=== PATIENT | female | born 2000 | race Caucasian/White ===

== ENCOUNTER 2019-12-01 21:29 | Inpatient (IN) | payer OTHER ==
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
[2019-12-02 02:01] LABS: Urine Appearance Clear; Urine Bilirubin Negative (Negative); Urine Blood Negative (Negative); Urine Color Straw; Urine Glucose Negative (Negative); Urine Ketones Negative (Negative); Urine Nitrite Negative (Negative); Urine Protein Negative (Negative); Urine Urobilinogen Negative (Negative)
[2019-12-02 02:17] LABS: Urine Benzodiazepine Screen None Detected (None Detect); Urine Opiates Screen None Detected (None Detect)
[2019-12-02] MEDS ORDERED: Al Hydrox/Mg Hydrox/Simet LIQ* 30 ML UDC PO PRN (06:24)
[2019-12-02] MEDS ORDERED: Nicotine* 2MG (FRUIT FLAVOR) GUM PO PRN (06:24)
[2019-12-02] MEDS ORDERED: Acetaminophen TAB* 325 MG PO PRN (06:24)
[2019-12-02] MEDS: Vitamin THERAPEUTIC TAB PO SCH (09:19)
[2019-12-02] MEDS: Lithium Carbonate TAB* 300 MG PO SCH ×2 (15:21→22:17)
[2019-12-02] MEDS: hydrOXYzine HCL TAB* 50 MG PO PRN (15:23)
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
[2019-12-02] MEDS: ARIPiprazole TAB* 5 MG PO SCH (22:16)
[2019-12-03] MEDS: Lithium Carbonate TAB* 300 MG PO SCH ×2 (07:46→20:07)
[2019-12-03] MEDS: Vitamin THERAPEUTIC TAB PO SCH (07:46)
[2019-12-03] MEDS: Ondansetron TAB* 4 MG PO PRN (14:00)
--- NOTE | 2019-12-03 17:23 | PN ---
Subjective - Subjective Subjective: She slept well, reports less thoughts of suicide today. She has felt nauseous since waking, threw up once, received Zofran prn with good effect. She remains motivated to go to inpatient rehab "I know if I get out of here, I will go get high!" Per staff, she has been visible in the milieu and adherents to unit's routines. Objective - General Observations Appearance: Well Groomed Appears Stated Age: Yes Stature: Thin Posture: WNL Eye Contact: Average Behavior/Activity: WNL - Interaction Observations Attitude Towards Examiner: Cooperative Stated Mood: Dysphoric Affect: Restricted Speech Pattern/Tone: Clear, Appropriate, Normal Volume Thought Process: Coherent, Goal Directed Perception: WNL Thought Content: WNL Thought Process: Lethality: Passive Wish Hallucination Type: None Delusion Type: None - Cognitive Function Orientation: A&O x 4 Level of Consciousness: Awake Cognition: WNL Estimated Intelligence: Normal Judgment Within Normal Limits: Yes - Medication Compliance Cooperative with Inpatient Medication Regimen: Yes - Group Participation Participates in Group Activities: Yes Assessment - Assessment Merits Inpatient Hospitalization: For Ongoing Evaluation, Consolidate Improvements, For Discharge Planning Inpatient DSM-V Dx: F39 Clinical Impression: Reportiing lower distress level, decreased SI and bart for safety. Med management continues trials of [place] and Abilify. Plan - Plan Treatment Plan: Name: CHRISTA FERNANDEZ Birthdate: 2000 [id number] Medications: Current Medications Acetaminophen (Tylenol Tab*) 650 mg PO Q4H PRN PRN Reason: PAIN or TEMP > 101 F Last Admin: 12/03/19 16:43 Dose: 650 mg Al Hydrox/Mg Hydrox/Simethicone (Maalox Plus*) 30 ml PO Q4H PRN PRN Reason: INDIGESTION Aripiprazole (Abilify Tab*) 5 mg PO BEDTIME NICOLE Last Admin: 12/02/19 22:16 Dose: 5 mg Hydroxyzine HCl (Atarax Tab*) 100 mg PO Q4H PRN PRN Reason: anxiety Last Admin: 12/02/19 15:23 Dose: 100 mg [place]burn Carbonate (Sherburn Carbonate Tab*) 300 mg PO BID NICOLE Last Admin: 12/03/19 07:46 Dose: 300 mg Multivitamins (Theragran Tab*) 1 tab PO DAILY NICOLE Last Admin: 12/03/19 07:46 Dose: 1 tab Nicotine Polacrilex (Nicotine Gum*) 2 mg PO Q2H PRN PRN Reason: CRAVINGS Ondansetron HCl (Zofran Tab*) 4 mg PO Q6H PRN PRN Reason: NAUSEA - REFRACTORY Last Admin: 12/03/19 14:00 Dose: 4 mg - Discharge Plan Discharge Plan: Drug/Alcohol Rehab
[2019-12-03] MEDS: hydrOXYzine HCL TAB* 50 MG PO PRN (19:50)
[2019-12-03] MEDS: ARIPiprazole TAB* 5 MG PO SCH (20:07)
[2019-12-04] MEDS: Ondansetron TAB* 4 MG PO PRN (08:05)
[2019-12-04] MEDS: Lithium Carbonate TAB* 300 MG PO SCH ×2 (09:06→21:29)
[2019-12-04] MEDS: Vitamin THERAPEUTIC TAB PO SCH (09:07)
[2019-12-04] MEDS: ARIPiprazole TAB* 5 MG PO SCH (21:30)
[2019-12-05] MEDS: Ondansetron TAB* 4 MG PO PRN (06:39)
[2019-12-05 08:20] LABS: HDL Cholesterol 68.2 mg/dL
[2019-12-05] MEDS: Vitamin THERAPEUTIC TAB PO SCH (09:20)
[2019-12-05] MEDS: Lithium Carbonate TAB* 300 MG PO SCH ×2 (09:22→21:03)
[2019-12-05 10:45] LABS: Lithium 0.37 mmol/L (0.6-1.2)
[2019-12-05] MEDS: hydrOXYzine HCL TAB* 50 MG PO PRN ×2 (12:48→19:19)
[2019-12-05] MEDS: Docusate CAP* 100 MG PO PRN (14:26)
[2019-12-05] MEDS: Polyethylene Glycol 3350* 17 GM PACKET PO PRN (14:26)
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
[2019-12-05] MEDS: ARIPiprazole TAB* 5 MG PO SCH (21:03)
[2019-12-06] MEDS: Ondansetron TAB* 4 MG PO PRN (07:05)
[2019-12-06] MEDS: Lithium Carbonate TAB* 300 MG PO SCH ×2 (08:17→20:41)
[2019-12-06] MEDS: Vitamin THERAPEUTIC TAB PO SCH (11:14)
--- NOTE | 2019-12-06 11:39 | PN ---
BSU: Group Therapy Note - Service Type Service Type: 35200 Group Psychotherapy - Cognitive Behavioral Group Therapy ( CBT):Patient was attentive and participatory in CBT programming this morning, and remained in good behavioral control. Patient expressed positive insights regarding relevant treatment interventions and goals.
--- NOTE | 2019-12-06 13:05 | PN ---
Subjective - Subjective Date of Service: 12/06/19 Service Type: 80189 Hosp care 15 min low complexity Subjective: Patient presents as dysphoric with restricted affect. She reports feeling guilt and shame after completing a packet for substance use treatment wherein she had to list past use and problematic behaviors. She states she is worried about not following through on commitment to sobriety. She is receptive to therapeutic presence and validation for efforts made thus far. She states she was told by a psychic to write a "forgiveness letter" to herself and may do so this evening. She c/o continued constipation and is encouraged to continue with laxative and stool softener. Objective - General Observations Appearance: Well Groomed Stature: WNL Posture: Slumped Eye Contact: Average Behavior/Activity: WNL - Interaction Observations Attitude Towards Examiner: Cooperative Stated Mood: Dysphoric Affect: Restricted Speech Pattern/Tone: Clear, Appropriate, Quiet Volume Thought Process: Circumstantial Perception: WNL Thought Content: Depressive, Self-Deprecatory Hallucination Type: Denies Delusion Type: Denies - Cognitive Function Orientation: A&O x 4 Level of Consciousness: Alert Cognition: WNL Estimated Intelligence: Normal Insight: Difficulty Acknowledging Presence of Psyciatric Problems Judgment Within Normal Limits: No Ability to Make Reasonable Decisions: Moderately Impaired - Medication Compliance Cooperative with Inpatient Medication Regimen: Yes - Group Participation Participates in Group Activities: Yes Assessment - Assessment Merits Inpatient Hospitalization: For Immediate Safety, For Stabilization, For Discharge Planning, Pending Safe DC Plan Inpatient DSM-V Dx: F39 Clinical Impression: Reporting lower distress level, decreased SI and bart for safety. Med management continues trials of [place] and Abilify. Awaiting accepting inpatient substance use treatment facility. Plan - Plan Treatment Plan: Name: CHRISTA FERNANDEZ Birthdate: 2000 [id number] continue acute intensive psychiatric treatment. may decrease to q30min and allow staff pass. continue aripiprazole and lithium. [place] trough on 12/05/19 of 0.37. continue miralax and docusate prn for constipation. referrals sent to inpatient substance use treatment facilities, awaiting response. patient is at great risk for relapse and suicide if discharged. Medications: Current Medications Acetaminophen (Tylenol Tab*) 650 mg PO Q4H PRN PRN Reason: PAIN or TEMP > 101 F Last Admin: 12/03/19 16:43 Dose: 650 mg Al Hydrox/Mg Hydrox/Simethicone (Maalox Plus*) 30 ml PO Q4H PRN PRN Reason: INDIGESTION Aripiprazole (Abilify Tab*) 5 mg PO BEDTIME [facility] Last Admin: 12/05/19 21:03 Dose: 5 mg Docusate Sodium (Colace Cap*) 100 mg PO BID PRN PRN Reason: CONSTIPATION Last Admin: 12/05/19 14:26 Dose: 100 mg Hydroxyzine HCl (Atarax Tab*) 100 mg PO Q4H PRN PRN Reason: anxiety Last Admin: 12/05/19 19:19 Dose: 100 mg [place] Carbonate ([place] Carbonate Tab*) 300 mg PO BID [facility] Last Admin: 12/06/19 08:17 Dose: 300 mg Multivitamins (Theragran Tab*) 1 tab PO DAILY [facility] Last Admin: 12/06/19 11:14 Dose: Not Given Nicotine Polacrilex (Nicotine Gum*) 2 mg PO Q2H PRN PRN Reason: CRAVINGS Ondansetron HCl (Zofran Tab*) 4 mg PO Q6H PRN PRN Reason: NAUSEA - REFRACTORY Last Admin: 12/06/19 07:05 Dose: 4 mg Polyethylene Glycol/Electrolytes (Miralax (17 Gm Dose Elias)) 17 gm PO DAILY PRN PRN Reason: CONSTIPATION Last Admin: 12/05/19 14:26 Dose: 17 gm - Discharge Plan Discharge Plan: Drug/Alcohol Rehab
[2019-12-06] MEDS: hydrOXYzine HCL TAB* 50 MG PO PRN (14:00)
[2019-12-06] MEDS: Docusate CAP* 100 MG PO PRN (16:12)
[2019-12-06] MEDS: Polyethylene Glycol 3350* 17 GM PACKET PO PRN (16:12)
[2019-12-06] MEDS: ARIPiprazole TAB* 5 MG PO SCH (20:41)
[2019-12-07] MEDS: Vitamin THERAPEUTIC TAB PO SCH (08:24)
[2019-12-07] MEDS: Lithium Carbonate TAB* 300 MG PO SCH ×2 (08:24→20:51)
--- NOTE | 2019-12-07 10:15 | PN ---
Subjective - Subjective Date of Service: 12/07/19 Service Type: [id number] Hosp care 15 min low complexity Subjective: Valeria continues to be fully engaged in programming and completes therapeutic assignments. She reports resolution of constipation. She reports sleeping well. [employer] completed and faxed [facility] paperwork to employer-- original document in patient discharge folder and copy made for chart. Objective - General Observations Appearance: Disheveled Stature: WNL Posture: WNL Eye Contact: Average Behavior/Activity: WNL - Interaction Observations Attitude Towards Examiner: Cooperative Stated Mood: Euthymic Affect: Full Speech Pattern/Tone: Clear, Appropriate, Normal Volume Thought Process: Coherent, Goal Directed Perception: WNL Thought Content: WNL Hallucination Type: Denies Delusion Type: Denies - Cognitive Function Orientation: A&O x 4 Level of Consciousness: Alert Cognition: WNL Estimated Intelligence: Normal Insight: WNL Judgment Within Normal Limits: No Ability to Make Reasonable Decisions: Moderately Impaired - Medication Compliance Cooperative with Inpatient Medication Regimen: Yes - Group Participation Participates in Group Activities: Yes Assessment - Assessment Merits Inpatient Hospitalization: For Immediate Safety, For Discharge Planning, Pending Safe DC Plan Inpatient DSM-V Dx: F39 Clinical Impression: Reporting lower distress level, decreased SI and bart for safety. Med management continues trials of [place] and Abilify. Awaiting accepting inpatient substance use treatment facility. patient is at great risk for relapse and suicide if discharged to home. Plan - Plan Treatment Plan: Name: CHRISTA FERNANDEZ Birthdate: 2000 [id number] continue acute intensive psychiatric treatment. may decrease to q30min and allow staff pass. continue aripiprazole and lithium. [place] trough on 12/05/19 of 0.37. continue miralax and docusate prn for constipation. referrals sent to inpatient substance use treatment facilities, awaiting response. Medications: Current Medications Acetaminophen (Tylenol Tab*) 650 mg PO Q4H PRN PRN Reason: PAIN or TEMP > 101 F Last Admin: 12/03/19 16:43 Dose: 650 mg Al Hydrox/Mg Hydrox/Simethicone (Maalox Plus*) 30 ml PO Q4H PRN PRN Reason: INDIGESTION Aripiprazole (Abilify Tab*) 5 mg PO BEDTIME [facility] Last Admin: 12/06/19 20:41 Dose: 5 mg Docusate Sodium (Colace Cap*) 100 mg PO BID PRN PRN Reason: CONSTIPATION Last Admin: 12/06/19 16:12 Dose: 100 mg Hydroxyzine HCl (Atarax Tab*) 100 mg PO Q4H PRN PRN Reason: anxiety Last Admin: 12/06/19 14:00 Dose: 100 mg [place] Carbonate ([place] Carbonate Tab*) 300 mg PO BID [facility] Last Admin: 12/07/19 08:24 Dose: 300 mg Multivitamins (Theragran Tab*) 1 tab PO DAILY [facility] Last Admin: 12/07/19 08:24 Dose: Not Given Nicotine Polacrilex (Nicotine Gum*) 2 mg PO Q2H PRN PRN Reason: CRAVINGS Ondansetron HCl (Zofran Tab*) 4 mg PO Q6H PRN PRN Reason: NAUSEA - REFRACTORY Last Admin: 12/06/19 07:05 Dose: 4 mg Polyethylene Glycol/Electrolytes (Miralax (17 Gm Dose Elias)) 17 gm PO DAILY PRN PRN Reason: CONSTIPATION Last Admin: 12/06/19 16:12 Dose: 17 gm - Discharge Plan Discharge Plan: Drug/Alcohol Rehab
--- NOTE | 2019-12-07 16:44 | PN ---
BSU: Group Therapy Note - Service Type Service Type: [id number] Group Psychotherapy - Medication Education Group: Patient was attentive and participatory in group, and remained in good behavioral control. Patient expressed positive insights regarding relevant treatment interventions. Patient stated understanding of material discussed and had appropriate questions.
[2019-12-07] MEDS: hydrOXYzine HCL TAB* 50 MG PO PRN (20:16)
[2019-12-07] MEDS: ARIPiprazole TAB* 5 MG PO SCH (20:51)
[2019-12-08] MEDS: Lithium Carbonate TAB* 300 MG PO SCH ×2 (11:00→21:02)
[2019-12-08] MEDS: Vitamin THERAPEUTIC TAB PO SCH (11:01)
--- NOTE | 2019-12-08 11:54 | PN ---
BSU: Group Therapy Note - Service Type Service Type: [id number] Group Psychotherapy - Cognitive Behavioral Group Therapy ( CBT):Patient was attentive and participatory in CBT programming this morning, and remained in good behavioral control. Patient expressed positive insights regarding relevant treatment interventions and goals.
[2019-12-08] MEDS: hydrOXYzine HCL TAB* 50 MG PO PRN (15:28)
[2019-12-08] MEDS: ARIPiprazole TAB* 5 MG PO SCH (21:02)
[2019-12-09] MEDS: Ondansetron TAB* 4 MG PO PRN (06:43)
[2019-12-09] MEDS: Lithium Carbonate TAB* 300 MG PO SCH ×2 (09:21→20:12)
[2019-12-09] MEDS: Vitamin THERAPEUTIC TAB PO SCH (09:21)
--- NOTE | 2019-12-09 15:51 | PN ---
Subjective - Subjective Date of Service: 12/09/19 Service Type: [id number] Hosp care 15 min low complexity Subjective: patient reports improved anxiety and stresses that she is proud of herself for utilizing coping skills instead of drugs. She states she was pleasantly surprised by her father's visit the other night and that he could tell "in her voice" earlier in the day that she wasn't doing well emotionally. She is working diligently on programming and assigned work. She is spontaneously working on [employer]. She is aware of likely bed date for [facility] on 12/13 and that other referrals are pending. Objective - General Observations Appearance: Well Groomed Stature: WNL Posture: WNL Eye Contact: Average Behavior/Activity: WNL - Interaction Observations Attitude Towards Examiner: Cooperative Stated Mood: Dysphoric, Euthymic, Anxious Affect: Full Speech Pattern/Tone: Clear, Appropriate, Normal Volume Thought Process: Coherent, Goal Directed Perception: WNL Thought Content: WNL Hallucination Type: Denies Delusion Type: Denies - Cognitive Function Orientation: A&O x 4 Level of Consciousness: Alert Cognition: WNL Estimated Intelligence: Normal Insight: WNL Judgment Within Normal Limits: No Ability to Make Reasonable Decisions: Mildly Impaired - Medication Compliance Cooperative with Inpatient Medication Regimen: Yes - Group Participation Participates in Group Activities: Yes Assessment - Assessment Merits Inpatient Hospitalization: For Immediate Safety, For Stabilization Inpatient DSM-V Dx: F39 Clinical Impression: Reporting lower distress level, decreased SI and bart for safety. Med management continues trials of [place] and Abilify. Awaiting accepting inpatient substance use treatment facility. patient is at great risk for relapse and suicide if discharged to home. Plan - Plan Treatment Plan: Name: CHRISTA FERNANDEZ Birthdate: 2000 [id number] continue acute intensive psychiatric treatment. may decrease to q30min and allow staff pass. continue aripiprazole and lithium. [place] trough on 12/05/19 of 0.37. continue miralax and docusate prn for constipation. referrals sent to inpatient substance use treatment facilities, awaiting response. Medications: Current Medications Acetaminophen (Tylenol Tab*) 650 mg PO Q4H PRN PRN Reason: PAIN or TEMP > 101 F Last Admin: 12/03/19 16:43 Dose: 650 mg Al Hydrox/Mg Hydrox/Simethicone (Maalox Plus*) 30 ml PO Q4H PRN PRN Reason: INDIGESTION Aripiprazole (Abilify Tab*) 5 mg PO BEDTIME [facility] Last Admin: 12/08/19 21:02 Dose: 5 mg Docusate Sodium (Colace Cap*) 100 mg PO BID PRN PRN Reason: CONSTIPATION Last Admin: 12/06/19 16:12 Dose: 100 mg Hydroxyzine HCl (Atarax Tab*) 100 mg PO Q4H PRN PRN Reason: anxiety Last Admin: 12/08/19 15:28 Dose: 100 mg [place] Carbonate ([place] Carbonate Tab*) 300 mg PO BID [facility] Last Admin: 12/09/19 09:21 Dose: 300 mg Multivitamins (Theragran Tab*) 1 tab PO DAILY [facility] Last Admin: 12/09/19 09:21 Dose: Not Given Nicotine Polacrilex (Nicotine Gum*) 2 mg PO Q2H PRN PRN Reason: CRAVINGS Ondansetron HCl (Zofran Tab*) 4 mg PO Q6H PRN PRN Reason: NAUSEA - REFRACTORY Last Admin: 12/09/19 06:43 Dose: 4 mg Polyethylene Glycol/Electrolytes (Miralax (17 Gm Dose Elias)) 17 gm PO DAILY PRN PRN Reason: CONSTIPATION Last Admin: 12/06/19 16:12 Dose: 17 gm - Discharge Plan Discharge Plan: Drug/Alcohol Rehab
[2019-12-09] MEDS: hydrOXYzine HCL TAB* 50 MG PO PRN (16:19)
[2019-12-09] MEDS: ARIPiprazole TAB* 5 MG PO SCH (20:12)
[2019-12-10] MEDS: Vitamin THERAPEUTIC TAB PO SCH (09:09)
[2019-12-10] MEDS: Lithium Carbonate TAB* 300 MG PO SCH ×2 (09:09→20:41)
[2019-12-10] MEDS: ARIPiprazole TAB* 5 MG PO SCH (20:41)
[2019-12-10] MEDS: hydrOXYzine HCL TAB* 50 MG PO PRN (20:48)
[2019-12-10] MEDS: Benzocaine/Menthol LOZ* 1 LOZENGE PO PRN (20:49)
[2019-12-11] MEDS: Benzocaine/Menthol LOZ* 1 LOZENGE PO PRN ×3 (08:24→18:44)
[2019-12-11] MEDS: Lithium Carbonate TAB* 300 MG PO SCH ×2 (08:25→21:02)
[2019-12-11] MEDS: Vitamin THERAPEUTIC TAB PO SCH (08:25)
[2019-12-11] MEDS: ARIPiprazole TAB* 5 MG PO SCH (21:02)
[2019-12-12 08:39] VITALS: BP 117/69
[2019-12-12] MEDS: Lithium Carbonate TAB* 300 MG PO SCH (08:43)
[2019-12-12] MEDS: Vitamin THERAPEUTIC TAB PO SCH (08:43)
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
== END 2019-12-12 11:30 | DRG 753 ==
LOC: ED 21:29 → BSU 12-02 03:50 → ED 12-02 05:05
PROVIDERS: ADMIT Psychiatry & Neurology Psychiatry; ATTEND Psychiatry & Neurology Psychiatry
PROC: GZHZZZZ Group Psychotherapy (ICD-10-PCS; principal; 2019-12-06)
DX: F31.81 Bipolar II disorder (principal); R45.851 Suicidal ideations; K59.00 Constipation, unspecified; Z62.810 Personal history of physical and sexual abuse in childhood; F43.10 Post-traumatic stress disorder, unspecified; Z91.5 Personal history of self-harm; Z28.21 Immunization not carried out because of patient refusal; Z79.899 Other long term (current) drug therapy; Z91.410 Personal history of adult physical and sexual abuse; Z72.89 Other problems related to lifestyle
CPT/HCPCS: 36415; 80061; 80178; 80307; 81003; 83036; 90853; 99222; 99231; 99232; 99238; 99285; A9270-GY; G0480